=== PATIENT | female | born 1950 | race Caucasian/White ===

== ENCOUNTER 2018-09-18 12:45 | Outpatient (CLI) | payer MEDICARE, OTHER | END 2018-09-18 23:59 | disposition home or self-care (01) | LOC: CARD DIAG 12:45 | PROVIDERS: ATTEND Internal Medicine Cardiovascular Disease | DX: I34.8 Other nonrheumatic mitral valve disorders (principal); I65.23 Occlusion and stenosis of bilateral carotid arteries; I10 Essential (primary) hypertension | CPT/HCPCS: 93306; 93880 ==